=== PATIENT | male | born 1970 | race Caucasian/White ===

== ENCOUNTER → 2017-09-04 | Outpatient (CLI) | payer OTHER | LOC: BMCIMAGING 15:18 | PROVIDERS: ATTEND Emergency Medicine | DX: M20.11 Hallux valgus (acquired), right foot (principal); M77.31 Calcaneal spur, right foot ==

== ENCOUNTER 2017-11-16 19:20 | Emergency (ER) | payer OTHER ==
[2017-11-16] MEDS ORDERED: IBUPROFEN 600 MG TAB PO ONE (20:23)
[2017-11-16] MEDS ORDERED: LET GEL TOPICAL 1 EA SYR TP ONE (20:23)
[2017-11-16] MEDS ORDERED: HYDROCODONE/APAP 5/325 TAB ONE (20:48)
[2017-11-16] MEDS ORDERED: HYDROCOD/APAP 5/325 PREPACK#6 BTL TAKEHOME ONE ×2 (21:13→21:27)
--- NOTE | 2017-11-16 21:20 | EDPHY ---
H & P Time Seen by Provider: 11/16/17 19:50 HPI/ROS: CHIEF COMPLAINT: Right shoulder injury HISTORY OF PRESENT ILLNESS: 47-year-old male presents to the emergency department by private vehicle with [place]. He was wearing a helmet. He did not hit his head or lose consciousness. He complains of isolated pain to the right shoulder. Denies headache. Denies neck or back pain. Denies chest pain or difficulty breathing. Denies abdominal pain. He also sustained superficial abrasions to his extremities but denies any other pain in his left upper extremity or lower extremities bilaterally. He denies pain in the right elbow or right wrist. Denies paresthesias in his right upper extremity. He is right-hand dominant. He is unsure of his last tetanus shot. REVIEW OF SYSTEMS: Constitutional: No fever, no chills. Eyes: No double or blurry vision. ENT: No sore throat. Respiratory: No cough, no shortness of breath. Cardiac: No chest pain. Gastrointestinal: No abdominal pain, vomiting or diarrhea. Genitourinary: No dysuria. Musculoskeletal: Right shoulder injury as above. No neck or back pain. Skin: Abrasions. No rashes. Neurological: No headache. Past Medical/Surgical History: Negative Social History: and lives in [place] Smoking Status: Never smoked Physical Exam: General Appearance: Alert, no distress. No visible signs of trauma to his head. Mentating normally and answering questions appropriately. Eyes: Pupils equal and round. Extraocular motions are all intact. ENT: Mouth: Mucous membranes moist. No dental injury or malocclusion. No hemotympanum. Respiratory: No wheezing, rhonchi, or rales, lungs are clear to auscultation. Cardiovascular: Regular rate and rhythm. Gastrointestinal: Abdomen is soft and nontender, no masses, no rebound or guarding, bowel sounds normal. Neurological: Alert and oriented x 3, cranial nerves II through XII grossly intact Skin: Superficial abrasions noted to the posterior aspect of the right elbow bilateral knees and left elbow. No suturable lacerations noted. Warm and dry, no rashes. Musculoskeletal: Nontender to palpate along the cervical, thoracic or lumbar spine. Neck is supple. Extremities: Palpable deformity over the right AC joint. He has reproducible pain with palpation of the right AC joint. Limited range of motion of the right shoulder secondary to pain. No evidence of shoulder dislocation. Nontender to palpate the right elbow or right wrist. Full range of motion of the right elbow and wrist. Full range of motion of the left upper extremity and lower extremities bilaterally. Psychiatric: Patient is oriented X 3, there is no agitation. Constitutional: Initial Vital Signs Temperature (C) 36.5 C 11/16/17 19:23 Heart Rate 77 11/16/17 19:23 Respiratory Rate 18 11/16/17 19:23 Blood Pressure 136/95 H 11/16/17 19:23 O2 Sat (%) 99 11/16/17 19:23 O2 Delivery Mode Room Air Allergies/Adverse Reactions: cephalexin [From Keflex] Allergy (Verified 11/16/17 20:24) Home Medications: Medication Instructions Recorded NK [No Known Home Meds] 11/16/17 Medical Decision Making - Diagnostics Imaging Results: X-rays of the right shoulder were interpreted by myself and reveals no evidence of obvious fracture. He does have evidence of AC separation without evidence of dislocation. Radiology interpretation to follow. Imaging: I viewed and interpreted images myself Procedures: Patient was placed in a sling and examined post application in good placement with normal [employer]. ED Course/Re-evaluation: This patient was seen during downtime. 47-year-old male presents to the emergency department with right shoulder injury. X-rays reveal AC separation without fracture. His abrasions were thoroughly cleansed and dressed. He was placed in a sling. The patient did not want us to update his tetanus shot. He would like to check his records and follow up with a primary care provider. He was also given referral to orthopedic surgeon. He has seen Dr. Andrew Goodman in the past. Differential Diagnosis: Including but not limited to fracture, dislocation, contusion, sprain, AC separation Departure - Departure Disposition: Home, Routine, Self-Care Clinical Impression: Acromioclavicular separation Qualifiers: Encounter type: initial encounter Laterality: right Qualified Code(s): S43.101A - Unspecified dislocation of right acromioclavicular joint, initial encounter Condition: Good Instructions: Acromioclavicular Separation (ED), Abrasion (ED), Acute Wounds ( ED) Additional Instructions: Sling for comfort and support. Ice to help relieve swelling. Ibuprofen 600 mg every 8 hr as needed for pain. Hydrocodone for severe pain as directed. Follow up with Dr. Andrew Goodman, your orthopedic surgeon, or with the on-call orthopedic surgeon in 1 week to recheck. Referrals: London London MD [Medical Doctor] - 2-3 days without fail (Orthopedic surgeon on-call)
[2017-11-16 21:36] VITALS: BP 128/72
== END 2017-11-16 21:35 | disposition home or self-care (01) ==
LOC: MERGE 19:20
DX: S43.101A Unspecified dislocation of right acromioclavicular joint, initial encounter (principal); V18.2XXA Unspecified pedal cyclist injured in noncollision transport accident in nontraffic accident, initial encounter